=== PATIENT | male | born 1965 | race Caucasian/White ===

== ENCOUNTER 2022-03-02 11:21 | Outpatient (REF) | payer MEDICARE, MEDICAID, SELFPAY | END 2022-03-02 11:22 | disposition home or self-care (01) | LOC: HO.RESP 11:21 | PROVIDERS: PCP Nurse Practitioner Primary Care; Visit Provider Nurse Practitioner Primary Care | DX: Z13.89 Encounter for screening for other disorder (principal) ==

== ENCOUNTER 2024-03-02 09:53 | Outpatient (REF) | payer MEDICARE, MEDICAID, SELFPAY ==
[2024-03-02 11:14] LABS: MANUAL DIFF FLAG NO
[2024-03-02 11:18] LABS: Basophils Absolute Auto 0.1 X10*3/uL (0.0-0.2); Basophils Percent Auto 0.6 % (0-2); Eosinophils Absolute Auto 0.2 X10*3/uL (0.0-0.4); Eosinophils Percent Auto 1.8 % (0-4); Hematocrit 44.9 % (42.0-52.0); Hemoglobin 15.5 g/dl (14.0-18.0); Imm Gran Abs Auto 0.03 X10*3/uL (0.00-0.03); Imm Gran Pct Auto 0.3 % (0.0-0.4); Lymphocytes Absolute Auto 4.4 X10*3/uL (1.2-4.9); Lymphocytes Percent Auto 42.2 % (20-40); Mean Corpuscular HGB Conc 34.5 g/dl (31.0-36.0); Mean Corpuscular Hemoglobin 33.3 pg (27.0-33.0); Mean Corpuscular Volume 96.4 fL (80.0-98.0); Mean Platelet Volume 11.7 fL (9.4-12.4); Monocytes Absolute Auto 1.1 X10*3/uL (0.1-1.2); Monocytes Percent Auto 10.9 % (2-11); Neutrophils Absolute Auto 4.6 x10*3/uL (2.0-8.3); Neutrophils Percent Auto 44.2 % (45-73); Platelet Count 269 X10*3/uL (160-400); Red Blood Count 4.66 X10*6/uL (4.60-5.80); Red Cell Distribution Width 15.3 % (11.0-16.0); White Blood Count 10.4 X10*3/uL (4.8-10.8)
[2024-03-02 11:35] LABS: Alanine Aminotransferase 23 U/L (0-40); Albumin Level 4.1 g/dL (3.5-5.0); Alkaline Phosphatase 97 U/L (39-117); Anion Gap 12 (12-20); Aspartate Amino Transferase 30 U/L (5-37); Bilirubin Total 0.6 mg/dL (0.0-1.0); Blood Urea Nitrogen 10 mg/dL (9-16); Calcium 9.6 mg/dL (8.4-10.2); Carbon Dioxide 26 mmol/L (22-29); Chloride 105 mmol/L (96-108); Estimated Glomerular Filt Rate > 60; Glucose Random 97 mg/dL (60-115); Potassium 3.6 mmol/L (3.3-5.1); Sodium 139 mmol/L (135-145); Total Protein 8.5 g/dL (6.5-8.0)
[2024-03-02 11:57] LABS: HBS Num1 1.23 mIU/mL (0-7.99); HBc Num1 4.36 S/CO (0.00-0.79); HBsAGNum1 0.27 S/CO (0.00-0.99); Hepatitis B Surface Antigen Negative (Negative); ~Hepatitis B Surface Antibody NONREACTIVE (Nonreactive)
[2024-03-02 12:54] LABS: HBc Num2 4.41 S/CO; HBc Num3 4.42 S/CO; Hepatitis B Core Antibody Reactive (Nonreactive)
[2024-03-04 11:14] LABS: Hepatitis B Core Antibody IgM NON-REACTIVE (NON-REACTIVE)
[2024-03-05 08:59] LABS: Absolute CD3 Count 3153 cells/uL (840-3060); Absolute CD4 Count 996 cells/uL (490-1740); Absolute CD8 Count 2134 cells/uL (180-1170); Absolute Lymphocytes 4620 cells/uL (850-3900); CD4 CD8 Ratio 0.47 (0.86-5.00); Percent CD3 Cells 68 % (57-85); Percent CD4 Cells 22 % (30-61); Percent CD8 Cells 46 % (12-42)
[2024-03-06 12:13] LABS: HIV RNA PCR Qn Copies <20 DETECTED copies/mL (NOT DETECTED); HIV RNA PCR Qn Log Copies <1.30 DETECTED (NOT DETECTED)
== END 2024-03-02 09:54 | disposition home or self-care (01) ==
LOC: HO.HHCL 09:53
PROVIDERS: Visit Provider Student in an Organized Health Care Education/Training Program
DX: B20 Human immunodeficiency virus [HIV] disease (principal)
CPT/HCPCS: 36415; 80053; 85025; 86359; 86360; 86704; 86705; 86706; 87340; 87536

== ENCOUNTER 2025-04-25 10:01 | Outpatient (REF) | payer MEDICARE, MEDICAID, SELFPAY ==
[2025-04-25 11:06] LABS: MANUAL DIFF FLAG NO
[2025-04-25 11:10] LABS: Appearance Urine Clear; Glucose Urine UA Negative (Negative); PH 6.5 (5.0-9.0); Specific Gravity - Urine <= 1.005 (1.005-1.025)
[2025-04-25 11:18] LABS: Hematocrit 42.8 % (42.0-52.0); Hemoglobin 14.8 g/dl (14.0-18.0); Imm Gran Abs Auto 0.03 X10*3/uL (0.00-0.03); Imm Gran Pct Auto 0.3 % (0.0-0.4); Lymphocytes Absolute Auto 2.3 X10*3/uL (1.2-4.9); Mean Corpuscular HGB Conc 34.6 g/dl (31.0-36.0); Mean Corpuscular Hemoglobin 32.2 pg (27.0-33.0); Mean Corpuscular Volume 93.2 fL (80.0-98.0); NRBC Abs Auto 0.000 X10*3/uL (0.0-0.012); NRBC Pct Auto 0.0 /100WBC (0.0-0.2); Platelet Count 318 X10*3/uL (160-400); Red Blood Count 4.59 X10*6/uL (4.60-5.80); White Blood Count 8.6 X10*3/uL (4.8-10.8)
[2025-04-25 11:35] LABS: Alanine Aminotransferase 22 U/L (0-40); Albumin Level 4.1 g/dL (3.5-5.0); Alkaline Phosphatase 123 U/L (39-117); Anion Gap 14 (12-20); Aspartate Amino Transferase 31 U/L (5-37); Blood Urea Nitrogen 14 mg/dL (9-16); Calcium 9.0 mg/dL (8.4-10.2); Carbon Dioxide 27 mmol/L (22-29); Chloride 100 mmol/L (96-108); Estimated Glomerular Filt Rate > 60; Potassium 3.5 mmol/L (3.3-5.1); Sodium 137 mmol/L (135-145); Total Protein 8.9 g/dL (6.5-8.0)
[2025-04-25 11:52] LABS: Thyroid Stimulating Hormone 1.24 uIU/mL (0.32-4.0)
== END 2025-04-25 10:02 | disposition home or self-care (01) ==
LOC: HO.HHCL 10:01
PROVIDERS: PCP Nurse Practitioner Primary Care; Visit Provider Registered Nurse Psychiatric/Mental Health, Adult
DX: F14.90 Cocaine use, unspecified, uncomplicated (principal); F11.90 Opioid use, unspecified, uncomplicated
CPT/HCPCS: 36415; 80053; 81003; 84100; 84443; 85025

== ENCOUNTER 2025-06-10 10:50 | Outpatient (REF) | payer MEDICARE, MEDICAID, SELFPAY ==
--- OUTSIDE RECORDS SUMMARY | 2025-06-08 06:25 | XMS_ITS | Encounter Summary ---
Author Organization [employer] Address [address] [place] [address] Care Team Providers Care Cut Roll Machine Offbearer Name Role Phone Physician, Pcp Unknown Primary Care Provider Nkechi vailable Reason for Visit * Reason Comments Shortness of Breath Encounter Details Date Type Department Care Team (Late st Contact Info) Description 06/08/2025 6:25 AM EDT - 06/08/2025 2:52 PM EDT Emergency [facility] Emergency [address] [place] [phone] Radha Ladd MD [address] [place] [address] Alcoholic intoxication without complication (CMS/HCC V24) (Primary Dx) Discharge Disposition: Home or Self Care Social History Tobacco Use Types Packs/Day Years Used Date Smoking Tobacco: Never Assessed Alcohol Use Standard Drinks/Week Comments Yes 24 (1 standard drink = 0.6 oz pu re alcohol) Sex and Gender Information Value Date Recorded Sex Assigned at Not on file Legal Sex Male 3:00 AM EST Gender Identity Not on file Sexual Orientation Not on file documented as of this encounter Last Filed Vital Signs Vital Sign Reading Time Taken Comments Blood Pressure 155/101 06/08/2025 2:24 PM EDT Pulse 86 06/08/2025 2:24 PM EDT Temperature 37.3 C (99.1 F) 06/08/2025 2:24 PM EDT Respiratory Rate 18 06/08/2025 2:24 PM EDT Oxygen Saturation 92% 06/08/2025 2:24 PM EDT Inhaled Oxygen Concentration - - Weight 90.7 kg (200 lb) 06/08/2025 6:13 AM EDT Height 180.3 cm (5' 11 ) 06/08/2025 6:13 AM EDT Body Mass Index 27.89 06/08/2025 6:13 AM EDT documented in this encounter Functional Status * Are you deaf or do you have serious difficulty hearing? Answer Date of Assessment Author No 06/08/2025 6:53 AM EDT Des Forde RN * Are you blind or do you have serious difficulty seeing, even when wearing glasses? Answer Date of Assessment Author No 06/08/2025 6:53 AM EDT Des Forde RN * Do you have serious difficulty walking or climbing stairs? Answer Date of Assessment Author No 06/08/2025 6:53 AM EDT Des Fored RN * Do you have serious difficulty dressing or bathing? Answer Date of Assessment Author No 06/08/2025 6:53 AM EDT Des Forde RN * Because of a physical, mental, or emotional condition, do you have serious difficulty doing errandsalone such as visiting the doctor? Answer Date of Assessment Author No 06/08/2025 6:53 AM EDT Des Forde RN documented as of this encounter Mental Status * Because of a physical, mental, or emotional condition, do you have serious difficulty concentrating, remembering, or making decisions? (5 years old or older) Answer Entry Date Author No 06/08/2025 6:53 AM DEET Des Forde RN documented in this encounter Discharge Instructions * Discharge Instructions* STEFAN Abraham - 06/08/2025 12:22 PM EDT You were treated for alcohol withdrawal and shortness of breath. Your symptoms improved and your hospital stay was uncomplicated. Medications Prescribed Chlordiazepoxide (Librium): Day 1: 50 mg by mouth 3 times daily Days 2-3: 25 mg by mouth 3 times daily Take exactly as prescribed. Do not take more than directed. Do not drink alcohol, drive, or operate heavy machinery while taking this medication. Thiamine (Vitamin B1): 100 mg daily (take as prescribed). Folic Acid: 125 mg daily (take as prescribed). Self-Care Do not drink alcohol. Combining alcohol with Librium is dangerous and can cause severe sedation or breathing problems. Stay hydrated and eat balanced meals. Rest: Avoid strenuous activity until cleared by your doctor. Follow-Up Follow up with your primary care provider within 3-5 days. If you have an addiction medicine provider or detox program, follow their instructions and contact them today or tomorrow. Return to the Emergency Department Immediately If You Develop: Seizures, confusion, hallucinations, or agitation Severe shortness of breath, chest pain, fainting Persistent vomiting or inability to keep medications down Severe weakness, dizziness, or new neurological symptoms Thoughts of harming yourself or others Additional Notes This prescription is only a short taper to help control withdrawal symptoms. It is not a long-term treatment. Continuing support, follow-up, and abstinence from alcohol are critical to your recovery. Seek immediate medical attention or call 911 should you develop chest pain, severe or worsening symptoms, numbness, tingling, severe headache, sudden change in vision, any other alarming symptoms discussed. Blood pressure discharge During your evaluation you were noted to have an elevated blood pressure on repeat measurements without a past medical history of diagnosis of hypertension and not taking medications daily. Elevated blood pressure may be due to current illness or discomfort and pain. I recommend that you have your blood pressure reevaluated after you are no longer ill. - You are asymptomatic at this time and are clinically appropriate for discharge to home and followup with PCP jim. Discussed potential need for meds/change in meds to control blood pressure if remains elevated. - There are risks of not following up with PCP for blood pressure control such as an increased riskof stroke, kidney failure, other organ failure or damage, heart attack, or even sudden loss of life - call 911 or go to ER should you develop chest pain, sudden change in vision, palpitations, severeheadache, sudden leg swelling, or other alarming symptoms documented in this encounter Medications at Time of Discharge chlordiazePOXIDE (LIBRIUM) 25 mg capsule Take 2 capsules (50 mg total) by mouth 3 (three) times a day if needed for withdrawal for 1 day, THEN 1 capsule (25 mg total) 3 (three) times a day if needed for withdrawal for up to 2 days. Max Daily Amount: 150 mg. 8 each 06/08/2025 5 iron fum,qc-[id number]-Gtx mp,C no.9 (Iron Folate Plus) 125 mg iron- 1 mg capsule Take 1 capsule by mouth 1 (one) time each day. 30 capsule 06/08/2025 thiamine 100 mg tablet Take 1 tablet (100 mg total) by mouth 1 (one) time each day. 30 tablet 06/08/2025 documented as of this encounter Ordered Prescriptions Prescription Sig Dispense Quantity Refills Last Filled Start Date End Date iron fum,[id number] ,C no.9 (Iron Folate Plus) 125 mg iron- 1 mg capsule Take 1 capsule by mouth 1 (one) time each day. 30 capsule 06/08/2025 thiamine 100 mg tablet Take 1 tablet (100 mg total) by mouth 1 (one) time each day. 30 tablet 06/08/2025 chlordiazePOXIDE (LIBRIUM) 25 mg capsule Take 2 capsules (50 mg total) by mouth 3 (three) times a day if needed for withdrawal for 1 day, THEN 1 capsule (25 mg total) 3 (three) times a day if needed for withdrawal for up to 2 days. Max Daily Amount: 150 mg. 8 each 06/08/2025 5 documented in this encounter Discharge Disposition Disposition Code Departure Means Destination Comment s Home or Self Care documented in this encounter Progress Notes * Amairani Nguyen, JOHN - 06/08/2025 6:15 AM EDT PT ARRIVES STEADY GAIT, TREMULOUS, PT STATES HE IS A DAILY DRINKER, LAST DRINK 10 PM LAST NIGHT, STATES HE DOES NOT HAVE SEIZURES IF HE STOPS DRINKING, STATES THE TREMORS STARTED A MONTH AGO, PT CHIEF COMPLAINTS IS SOB, THAT STARTED IN MIDDLE OF THE NIGHT, PT STATES HE HAS HX COPD, CHF, PT DOES NOTUSE HOME O2, PT DENIES COUGH AND COLD SYMPTOMS, DENIES N/V/D, DENIES OR BM SYMPTOMS , USES TOBACCO , NO WEED, SPEAKS IN FULL SENTENCES, DENIES CP * STEFAN Abraham - 06/08/2025 6:07 AM EDT HPI Chief Complaint Patient presents with Shortness of Breath Patient is a pleasant 59-year-old male with past medical history of COPD living on room air, HIV, and EtOH abuse presenting today with sudden onset shortness of breath around 4:00 this morning. Patient reports he had a 24 pack of bottled beer Last evening. Patient denies fever, chills, nausea, vomiting, diarrhea, chest pain, palpitations, sudden swelling lower extremities, severe headache, No data recorded Patient History No past medical history on file. No past surgical history on file. No family history on file. Social History Tobacco Use Smoking status: Not on file Smokeless tobacco: Not on file Substance Use Topics Alcohol use: Not on file Drug use: Not on file Review of Systems Review of Systems Physical Exam ED Triage Vitals [06/08/25 0613] Temp Heart Rate Resp BP 37.1 ??C (98.7 ??F) 92 20 (!) 171/101 SpO2 Temp Source Heart Rate Source Patient Position 92 % Temporal -- Sitting BP Location FiO2 (%) -- -- Physical Exam Vitals and nursing note reviewed. Constitutional: General: He is not in acute distress. Appearance: He is not ill-appearing, toxic-appearing or diaphoretic. HENT: Head: Normocephalic and atraumatic. Right Ear: External ear normal. Left Ear: External ear normal. Nose: Nose normal. No rhinorrhea. Eyes: Extraocular Movements: Extraocular movements intact. Conjunctiva/sclera: Conjunctivae normal. Pupils: Pupils are equal, round, and reactive to light. Cardiovascular: Rate and Rhythm: Normal rate. Rhythm irregularly irregular. Heart sounds: Normal heart sounds. Comments: Well-perfused Pulmonary: Effort: Pulmonary effort is normal. No respiratory distress. Breath sounds: Transmitted upper airway sounds present. No stridor or decreased air movement. Comments: Patient making vocal cord noises with deep breathing making it difficult to determine if there is mild wheeze or not Abdominal: General: There is no distension. Musculoskeletal: General: No deformity. Normal range of motion. Cervical back: Normal range of motion and neck supple. No rigidity. Right lower leg: No edema. Left lower leg: No edema. Skin: General: Skin is warm. Capillary Refill: Capillary refill takes 2 to 3 seconds. Coloration: Skin is not jaundiced or pale. Neurological: General: No focal deficit present. Mental Status: He is alert and oriented to person, place, and time. Mental status is at baseline. GCS: GCS eye subscore is 4. GCS verbal subscore is 5. GCS motor subscore is 6. Motor: Tremor present. Coordination: Coordination normal. Gait: Gait is intact. Psychiatric: Attention and Perception: Attention normal. Mood and Affect: Mood and affect normal. Speech: Speech normal. Behavior: Behavior normal. Thought Content: Thought content normal. Judgment: Judgment normal. ED Course & MDM ED Course as of 06/08/25 1426 Sat Jun 08, 2025 0631 CIWA AR score 8.. Will have Diazepam as needed agitation, anxiety or tremors [LB] 0654 ECG 12 lead EKG independently interpreted by myself: No overt evidence of STEMI. No evidence of Brugada's sign,delta wave, epsilon wave, significantly prolonged QTc, or malignant arrhythmia Irregularly irregular rhythm noted [LB] 0718 B-type natriuretic peptide BMP within normal range. Patient is unlikely experiencing CHF [LB] 0719 Magnesium Within normal range [LB] 0719 Troponin I high sensitivity Within normal range [LB] 0720 CBC and differential(!) CBC largely unremarkable. [LB] 0720 Basic metabolic panel(!) BMP is reassuring with normal sodium and electrolytes. Glucose mildly elevated at 126 however does not require management at this time [LB] 0720 ECG 12 lead Chest x-ray independently interpreted by myself: No acute cardiopulmonary disease noted. Increased peribronchial markings consistent with reactive airway/COPD. [LB] 1415 Patient requesting for discharge at this time because he feels a lot better. Patient appears clinically appropriate and stable with downtrending blood pressures. Patient is currently asymptomatic other than his baseline tremors that has had for the last month or 2. [LB] ED Course User Index [LB] Jose Last, PA Clinical Impressions as of 06/08/25 1426 Alcoholic intoxication without complication (CMS/[facility] V24) Medical Decision Making Patient with a history of COPD and HIV who presented this morning with shortness of breath that started suddenly overnight and headache and sweats. Patient reporting history of alcohol withdrawals without seizures or complications in the past. Patient states he tried using his albuterol inhaler with little effect and decided to come in. Patient's EtOH was 25 this morning. Patient was also positive for methadone in urine. However, remaining talk screen negative and no electrolyte abnormalities. CBC and BMP were largely unremarkable. Patient received single dose 10 mg Valium for reported headache, nausea and agitation earlier this morning with good effect and patient is requesting discharge at this time. Patient appears clinically stable and appropriate for discharge and blood pressures trending downward as they were elevated at time of initial evaluation. During your evaluation you were noted to have an elevated blood pressure on repeat measurements without a past medical history of diagnosis of hypertension and not taking medications daily. Elevated blood pressure may be due to current illness or discomfort and pain. I recommend that you have your blood pressure reevaluated after you are no longer ill. I will be discharging patient with Librium to help manage withdrawal symptoms as he reports he would like to go to detox today or tomorrow. Strict RTC precautions discussed. I will also be sending thiamine and folate supplements as part of his regimen. MassPat reviewed. No concern for abuse of librium Procedures STEFAN Abraham 06/08/25 0615 STEFAN Abraham 06/08/25 0626 STEFAN Abraham 06/08/25 0745 STEFAN Abraham 06/08/25 1425 STEFAN Abraham 06/08/25 1430 Cosigned by Nabeel Steiner MD at 06/09/2025 10:16 PM EDT documented in this encounter Plan of Treatment Not on file documented as of this encounter Procedures Procedure Name Priority Date/Time Associated Diagnosis Comments ECG ANNOTATED 06/10/2025 DRUG ABUSE SCREEN 8A PANEL, URINE STAT 06/08/2025 7:54 AM EDT BUPRENORPHINE SCREEN, URINE STAT 06/08/2025 7:54 AM EDT METHADONE SCREEN, URINE STAT 06/08/2025 7:54 AM EDT PHENCYCLIDINE, URINE STAT 06/08/2025 7:54 AM EDT TROPONIN I HIGH SENSITIVITY Timed 06/08/2025 7:51 AM EDT XR CHEST 2 VIEWS STAT 06/08/2025 6:57 AM EDT TROPONIN I HIGH SENSITIVITY Timed 06/08/2025 6:22 AM EDT CBC WITH AUTO DIFFERENTIAL STAT 06/08/2025 6:22 AM EDT CBC AND DIFFERENTIAL STAT 06/08/2025 6:22 AM EDT B-TYPE NATRIURETIC PEPTIDE STAT 06/08/2025 6:22 AM EDT MAGNESIUM STAT 06/08/2025 6:22 AM EDT LIPASE STAT 06/08/2025 6:22 AM EDT ETHANOL STAT 06/08/2025 6:22 AM EDT BASIC METABOLIC PANEL STAT 06/08/2025 6:22 AM EDT ECG 12-LEAD STAT 06/08/2025 6:14 AM EDT documented in this encounter Results * ECG-Annotated (06/10/2025) us Provider Onbase MD ECG ORDERABLES Final Result * (ABNORMAL) Methadone, urine (06/08/2025 7:54 AM EDT) Pathologist [facility] Methadone Screen, Urine Positive (A) Negative LAB CHEMISTRY METHOD 06/08/2025 8:24 AM EDT [facility] Comment: Assay cutoff 300 ng/mL Semi-quantitative assay for screening purposes only. Unconfirmed screening result should not be used for non-medical purposes. *ALTERNATE METHOD CONFIRMATION DONE UPON REQUEST ONLY* Urine Urine specimen obtained by clean catch procedure / Unknown Non-blood Collection / Unknown 06/08/2025 7:54 AM EDT 06/08/2025 8:04 AM EDT Tan Weems MD LAB URINE ORDERABLES Final Result Performing Organization Address [facility] de Phone Number [facility] [address] [place] [address], [place] [phone] * Phencyclidine, urine (06/08/2025 7:54 AM EDT) [facility] PCP Scrn, Ur Negative Negative LAB CHEMISTRY METHOD 06/08/2025 8:24 AM EDT [facility] Comment: Assay cutoff 25 ng/mL Semi-quantitative assay for screening purposes only. Unconfirmed screening result should not be used for non-medical purposes. *ALTERNATE METHOD CONFIRMATION DONE UPON REQUEST ONLY* Urine Urine specimen obtained by clean catch procedure / Unknown Non-blood Collection / Unknown 06/08/2025 7:54 AM EDT 06/08/2025 8:04 AM EDT Tan Weems MD LAB URINE ORDERABLES Final Result Performing Organization Address City/[facility]/ZIP Co de Phone Number [facility] [address] [place] [address], [place] [phone] * Buprenorphine screen, urine (06/08/2025 7:54 AM EDT) [facility] Buprenorphine Screen Urine Negative Negative LAB CHEMISTRY METHOD 06/08/2025 8:24 AM EDT [facility] Urine Urine specimen obtained by clean catch procedure / Unknown Non-blood Collection / Unknown 06/08/2025 7:54 AM EDT 06/08/2025 8:04 AM EDT Narrative [facility] - 06/08/2025 8:24 AM EDT Assay cutoff 5 ng/mL Semi-quantitative assay for screening purposes only. Unconfirmed screening result should not be used for non-medical purposes. *ALTERNATE METHOD CONFIRMATION DONE UPON REQUEST ONLY* us Tan Weems MD LAB URINE ORDERABLES Final Result [facility] [address] [place] [address], [place] [phone] * Drug abuse screen 8a panel, urine (06/08/2025 7:54 AM EDT) Amphetamine Screen, Ur Negative Negative LAB CHEMISTRY METHOD 06/08/2025 8:24 AM EDT [facility] Comment:Certain OTC medicati ons containing ephedrine, phenylephrine, pseudoephedrine and phenylpropanolamine can cause false positive results. Barbiturate Screen, Ur Negative Negative LAB CHEMISTRY METHOD 06/08/2025 8:24 AM EDT [facility] Benzodiazepine Screen, Ur Negative Negative LAB CHEMISTRY METHOD 06/08/2025 8:24 AM [facility] Cocaine Screen, Ur Negative Negative LAB CHEMISTRY METHOD 06/08/2025 8:24 AM EDT [facility] Opiate Screen, Ur Negative Negative LAB CHEMISTRY METHOD 06/08/2025 8:24 AM [facility] Cannabinoid (THC) Screen, Ur Negative Negative LAB CHEMISTRY METHOD 06/08/2025 8:24 AM [facility] Comment:Specimens from patie nts taking pantoprazole sodium (Protonix) have been shown to produce false positive results. Oxycodone Screen, Ur Negative Negative LAB CHEMISTRY METHOD 06/08/2025 8:24 AM EDT [facility] Fentanyl, Ur Negative Negative LAB CHEMISTRY METHOD 06/08/2025 8:24 AM EDT [facility] Urine Urine specimen obtained by clean catch procedure / Unknown Non-blood Collection / Unknown 06/08/2025 7:54 AM EDT 06/08/2025 8:04 AM EDT [facility] - 06/08/2025 8:24 AM EDT Assay cutoffs: Amphetamines 1000 ng/mL Barbiturates 200 ng/mL Benzodiazepines 200 ng/mL Cocaine 300 ng/mL Fentanyl 1 ng/mL Opiates 300 ng/mL Oxycodone 100 ng/mL THC 50 ng/mL Semi-quantitative assay for screening purposes only. Unconfirmed screening result should not be used for non-medical purposes. *ALTERNATE METHOD CONFIRMATION DONE UPON REQUEST ONLY* Tan Weems MD LAB URINE ORDERABLES Final Result Performing Organization Address [facility] Co de Phone Number [facility] [address] [place] [address], * Troponin I high sensitivity (06/08/2025 7:51 AM EDT) [facility] High Sensitivity Troponin I 13 <=79 ng/L LAB CHEMISTRY METHOD 06/08/2025 8:30 AM EDT [facility] Blood Venous blood specimen / Unknown Venipuncture / Unknown 06/08/2025 7:51 AM EDT 06/08/2025 8:03 AM EDT [facility] - 06/08/2025 8:30 AM EDT High levels of biotin in samples may falsely decrease hsTroponin values. Use caution when interpreting hsTroponin results in patients taking biotin who exhibit renal impairment (eGFR <60) or in patients taking more than 20 mg/day of biotin. Tan Weems MD LAB BLOOD ORDERABLES Final Result Performing Organization Address [facility]/ZIP Co de Phone Number [facility] [address] [place] [address], * XR Chest 2 Views (06/08/2025 6:57 AM EDT) Anatomical Region Laterality Modality Body Radiographic Zara ging 06/08/2025 8:19 AM EDT Impressions 06/08/2025 8:20 AM EDT FINDINGS/IMPRESSION: Lungs are clear. No pleural effusion or pneumothorax. Cardiac silhouette and bones are within normal limits. -------- FINAL REPORT -------- Dictated By: JASON AYON Dictated Date: 06/08/2025 08:19 ET Assigned Physician: JASON AYON Reviewed and Electronically Signed By: JASON AYON Signed Date: 06/08/2025 08:20 ET Workstation ID: [id number] Transcribed By: Self Edit Transcribed Date: 06/08/2025 08:19 ET Narrative 06/08/2025 8:20 AM EDT XR CHEST 2 VIEWS INDICATION: Chest pain TECHNIQUE: XR CHEST 2 VIEWS COMPARISON: 12/28/2016 Procedure Note Jason Ayon MD - 06/08/2025 XR CHEST 2 VIEWS INDICATION: Chest pain TECHNIQUE: XR CHEST 2 VIEWS COMPARISON: 12/28/2016 IMPRESSION: FINDINGS/IMPRESSION: Lungs are clear. No pleural effusion orpneumothorax. Cardiac silhouette and bones are within normal limits. -------- FINAL REPORT -------- Dictated By: JASON AYON Dictated Date: 06/08/2025 08:19 ET Assigned Physician: JASON AYON Reviewed and Electronically Signed By: JASON AYON Signed Date: 06/08/2025 08:20 ET Workstation ID: [id number] Transcribed By: Self Edit Transcribed Date: 06/08/2025 08:19 ET Tan Weems MD IMG XR PROCEDURES Final Res ult * Troponin I high sensitivity (06/08/2025 6:22 AM EDT) High Sensitivity Troponin I 14 <=79 ng/L LAB CHEMISTRY METHOD 06/08/2025 6:59 AM EDT [facility] Blood Venous blood specimen / Unknown Venipuncture / Unknown 06/08/2025 6:22 AM EDT 06/08/2025 6:30 AM EDT Narrative [facility] - 06/08/2025 6:59 AM EDT High levels of biotin in samples may falsely decrease hsTroponin values. Use caution when interpreting hsTroponin results in patients taking biotin who exhibit renal impairment (eGFR <60) or in patients taking more than 20 mg/day of biotin. Tan Weems MD LAB BLOOD ORDERABLES Final Result Performing Organization Address City/[facility]/ZIP Co de Phone Number [facility] [address] [place] [address], [place] [phone] * Lipase (06/08/2025 6:22 AM EDT) Lipase 66 13 - 75 unit/L LAB CHEMISTRY METHOD 06/08/2025 7:06 AM EDT [facility] Blood Venous blood specimen / Unknown Venipuncture / Unknown 06/08/2025 6:22 AM EDT 06/08/2025 6:30 AM EDT Tan Weems MD LAB BLOOD ORDERABLES Final Result [facility] [address] [place] [address], [place] [phone] * Magnesium (06/08/2025 6:22 AM EDT) Magnesium 2.1 1.9 - 2.6 mg/dL LAB CHEMISTRY METHOD 06/08/2025 7:06 AM EDT [facility] Blood Venous blood specimen / Unknown Venipuncture / Unknown 06/08/2025 6:22 AM EDT 06/08/2025 6:30 AM EDT Tan Weems MD LAB BLOOD ORDERABLES Final Result Performing Organization Address City/[facility]/ZIP Co de Phone Number [facility] [address] [place] [address], [place] [phone] * (ABNORMAL) Ethanol (06/08/2025 6:22 AM EDT) Pathologist [facility] Ethanol Level 25(H) 0 - 10 mg/dL LAB CHEMISTRY METHOD 06/08/2025 7:06 AM EDT [facility] Blood Venous blood specimen / Unknown Venipuncture / Unknown 06/08/2025 6:22 AM EDT 06/08/2025 6:30 AM EDT Tan Weems MD LAB BLOOD ORDERABLES Final Result Performing Organization Address [facility] Co de Phone Number [facility] [address] [place] [address], [place] [phone] * (ABNORMAL) CBC auto differential (06/08/2025 6:22 AM EDT) [facility] WBC 10.3 4.8 - 10.8 K/mcL LAB HEMETOLOGY METHOD 06/08/2025 6:40 AM EDT [facility] RBC 4.90 4.50 - 5.50 M/mcL LAB HEMETOLOGY METHOD 06/08/2025 6:40 AM EDT [facility] Hemoglobin 14.6 13.5 - 17.5 g/dL LAB HEMETOLOGY METHOD 06/08/2025 6:40 AM EDT [facility] Hematocrit 44.8 42.0 - 54.0 % LAB HEMETOLOGY METHOD 06/08/2025 6:40 AM EDT [facility] MCV 92.2 79.0 - 98.0 FL LAB HEMETOLOGY METHOD 06/08/2025 6:40 AM EDT [facility] MCH 30.0 27.0 - 32.0 pcg LAB HEM[facility] MCHC 32.6 32.0 - 37.0 g/dL LAB HEMETOLOGY METHOD 06/08/2025 6:40 AM [facility] RDW 15.0 11.0 - 15.0 % LAB HEMETOLOGY METHOD 06/08/2025 6:40 AM [facility] Platelets 343 130 - 400 K/mcL LAB HEMETOLOGY METHOD 06/08/2025 6:40 AM [facility] MPV 10.2 7.0 - 11.0 [place] LAB HEMETOLOGY METHOD 06/08/2025 6:40 AM [facility] NRBC 0.0 <1.0 % LAB HEMETOLOGY METHOD 06/08/2025 6:40 AM [facility] NRBC Absolute 0.00 <0.10 K/mcL LAB HEMETOLOGY METHOD 06/08/2025 6:40 AM [facility] Neutrophils Relative 49.0 % LAB HEMETOLOGY METHOD 06/08/2025 6:40 AM [facility] Lymphocytes Relative 37.9 % LAB HEMETOLOGY METHOD 06/08/2025 6:40 AM [facility] Monocytes Relative 11.4 % LAB HEMETOLOGY METHOD 06/08/2025 6:40 AM [facility] Eosinophils Relative 0.9 % LAB HEMETOLOGY METHOD 06/08/2025 6:40 AM [facility] Basophils Relative 0.5 % LAB HEMETOLOGY METHOD 06/08/2025 6:40 AM [facility] Immature Granulocytes Relative 0.3 % LAB HEMETOLOGY METHOD 06/08/2025 6:40 AM [facility] Neutrophils Absolute 5.04 1.50 - 7.00 K/mcL LAB HEMETOLOGY METHOD 06/08/2025 6:40 AM EDT [facility] Lymphocytes Absolute 3.90 1.00 - 5.00 K/mcL LAB HEMETOLOGY METHOD 06/08/2025 6:40 AM EDT [facility] Monocytes Absolute 1.17(H) 0.20 - 1.00 K/mcL LAB HEMETOLOGY METHOD 06/08/2025 6:40 AM EDT [facility] Eosinophils Absolute 0.09 0.00 - 0.50 K/[facility] HEMETOLOGY METHOD 06/08/2025 6:40 AM EDT [facility] Basophils Absolute 0.05 0.00 - 0.20 K/mcL LAB HEMETOLOGY METHOD 06/08/2025 6:40 AM EDT [facility] Immature Granulocytes Absolute 0.03 0.00 - 0.03 K/mcL LAB HEMETOLOGY METHOD 06/08/2025 6:40 AM EDT [facility] Blood Venous blood specimen / Unknown Venipuncture / Unknown 06/08/2025 6:22 AM EDT 06/08/2025 6:30 AM EDT Tan Weems MD LAB BLOOD ORDERABLES Final Result [facility] [address] [place] [address], * B-type natriuretic peptide (06/08/2025 6:22 AM EDT) BNP 23 <=100 pcg/mL LAB CHEMISTRY METHOD 06/08/2025 7:07 AM EDT [facility] Blood Venous blood specimen / Unknown Venipuncture / Unknown 06/08/2025 6:22 AM EDT 06/08/2025 6:30 AM EDT us Tan Weems MD LAB BLOOD ORDERABLES Final Result [facility] [address] [place] [address], * (ABNORMAL) Basic metabolic panel (06/08/2025 6:22 AM EDT) Sodium 138 133 - 145 mmol/L LAB CHEMISTRY METHOD 06/08/2025 7:06 AM [facility] Potassium 3.5 3.5 - 5.5 mmol/L LAB CHEMISTRY METHOD 06/08/2025 7:06 AM [facility] Chloride 100 96 - 110 mmol/L LAB CHEMISTRY METHOD 06/08/2025 7:06 AM [facility] CO2 28 21 - 32 mmol/L LAB CHEMISTRY METHOD 06/08/2025 7:06 AM [facility] Anion Gap 10 3 - 11 LAB CHEMISTRY METHOD 06/08/2025 7:06 AM [facility] Glucose 125(H) 70 - 100 mg/dL LAB CHEMISTRY METHOD 06/08/2025 7:06 AM [facility] BUN 13 5 - 25 mg/dL LAB CHEMISTRY METHOD 06/08/2025 7:06 AM [facility] Creatinine 0.78 0.70 - 1.30 mg/dL LAB CHEMISTRY METHOD 06/08/2025 7:06 AM [facility] eGFR 103 >=60 mL/min/1. 73m2 LAB CHEMISTRY METHOD 06/08/2025 7:06 AM [facility] Comment:Calculation based on the Chronic Kidney Disease Epidemiology Collaboration (CKD-EPI) equation refit without adjustment for race. BUN/Creatinine Ratio 16.7 LAB CHEMISTRY METHOD 06/08/2025 7:06 AM [facility] Calcium 9.3 8.5 - 10.5 mg/dL LAB CHEMISTRY METHOD 06/08/2025 7:06 AM EDT [facility] Blood Venous blood specimen / Unknown Venipuncture / Unknown 06/08/2025 6:22 AM EDT 06/08/2025 6:30 AM EDT Tan Weems MD LAB BLOOD ORDERABLES Final Result Performing Organization Address City/[facility]/ZIP Co de Phone Number [facility] [address] [place] [address], [place] [phone] * ECG 12 lead (06/08/2025 6:14 AM EDT) Ventricular Rate ECG 87 BPM G[facility] Atrial Rate 87 BPM G[facility] P-R Interval 172 ms GEMUSE QRS Duration 94 ms GEMUSE Q-T Interval 388 ms GEMUSE QTc 466 ms GEMUSE P Wave [place] 47 degrees GEMUSE R [place] 8 degrees GEMUSE T [place] 12 degrees GEMUSE ECG Interpretation Sinus rhythm with Premature atrial complexes When compared with ECG of 15-AUG-2018 08:31, Premature atrial complexes are now Present Vent. rate has increased BY 29 BPM Confirmed by KIAN DOBBS ([id number]) on 06/08/2025 11:41:02 PM GEMUSE 06/08/2025 6:14 AM EDT 06/08/2025 11:41 PM EDT Tan Weems MD ECG ORDERABLES Final Resul t Performing Organization Address City/[facility]/ZIP Co de Phone Number GEMUSE documented in this encounter Visit Diagnoses Diagnosis Alcoholic intoxication without complication (CMS/HCC V24)- Primary documented in this encounter Administered Medications Inactive Administered Medications - up to 3 most recent administrations Medication Order MAR Action Action Date Dose Rate Site diazePAM (VALIUM) injection 10 mg 10 mg, intravenous, Every 4 hours PRN, anxiety, other, increasing CIWA, Starting on 06/08/25 at 0902, For 1 day, Indications: increasing agitation, sweats, tremorsIndications:increasi ng agitation, sweats, tremors Given 06/08/2025 9:33 AM EDT 10 mg lactated Ringer's bolus 1,000 mL 1,000 mL, intravenous, at 1,000 mL/hr, Administer over 1 Hours, Once, On 06/08/25 at 0640, For 1 dose New Bag 06/08/2025 6:58 AM EDT 1,000 mL 100 0 mL/hr documented in this encounter Active and Recently Administered Medications Times are shown in EDT. Scheduled Medication Order 06/06/2025 06/07/2025 06/08/2025 lactated Ringer's bolus 1,000 mL (COMPLETED) 1,000 mL, intravenous, at 1,000 mL/hr, Administer over 1 Hours, Once, On 06/08/25 at 0640, For 1 dose 0658 (New Bag - Prov ider: Marleni Forde RN)[id number] (Stopped - Provider: Radha Moore RN) PRN Medication Order 06/06/2025 06/07/2025 06/08/2025 diazePAM (VALIUM) injection 10 mg 10 mg, intravenous, Every 4 hours PRN, anxiety, other, increasing CIWA, Starting on 06/08/25 at 0902, For 1 day, Indications: increasing agitation, sweats, tremors 0933 (Given - Provid er: Radha Moore RN) documented in this encounter Orders Medications Ordered That [place] ht Not Have Been Administered Count Last Ordered Date First Ordered Date lactated Ringer's bolus 1,000 mL 06/08/20 IV Count Last Ordered Date First Orde red Date INSERT PERIPHERAL IV 1 06/08/2025 documented in this encounter Care Teams Cut Roll Machine Offbearer Relationship Specialty Start Date End Date Physician, Pcp Unknown PCP - General 06/08/25 documented as of this encounter
[2025-06-10 13:40] LABS: MANUAL DIFF FLAG NO
[2025-06-10 13:43] LABS: Hematocrit 46.3 % (42.0-52.0); Hemoglobin 15.6 g/dl (14.0-18.0); Imm Gran Abs Auto 0.03 X10*3/uL (0.00-0.03); Imm Gran Pct Auto 0.4 % (0.0-0.4); Lymphocytes Absolute Auto 2.4 X10*3/uL (1.2-4.9); Mean Corpuscular HGB Conc 33.7 g/dl (31.0-36.0); Mean Corpuscular Hemoglobin 30.8 pg (27.0-33.0); Mean Corpuscular Volume 91.3 fL (80.0-98.0); NRBC Abs Auto 0.000 X10*3/uL (0.0-0.012); NRBC Pct Auto 0.0 /100WBC (0.0-0.2); Platelet Count 328 X10*3/uL (160-400); Red Blood Count 5.07 X10*6/uL (4.60-5.80); White Blood Count 8.0 X10*3/uL (4.8-10.8)
[2025-06-10 13:57] LABS: Alanine Aminotransferase 47 U/L (0-40); Albumin Level 4.3 g/dL (3.5-5.0); Alkaline Phosphatase 109 U/L (39-117); Anion Gap 14 (12-20); Aspartate Amino Transferase 55 U/L (5-37); Blood Urea Nitrogen 19 mg/dL (9-16); Calcium 9.6 mg/dL (8.4-10.2); Carbon Dioxide 26 mmol/L (22-29); Chloride 102 mmol/L (96-108); Cholesterol 236 mg/dL (<200); Estimated Glomerular Filt Rate > 60; HDL Cholesterol 52 mg/dL (>40); Hemoglobin A1C 165.9369 umol/L; Potassium 3.5 mmol/L (3.3-5.1); Sodium 138 mmol/L (135-145); Total Hemoglobin (HGBA1C) 4095.1199 umol/L; Total Protein 9.0 g/dL (6.5-8.0); Triglycerides 89 mg/dL (<150)
--- OUTSIDE RECORDS SUMMARY | 2025-06-10 14:22 | XMS_ITS | Clinical Summary ---
Author Organization [facility] Address [address] [place] [address] Phone Care Team Providers Care Career Portals Teacher Name Role Phone Physician, Pcp Unknown Primary Care Provider Nkechi vailable Allergies No known active allergies Medications chlordiazePOXID E (LIBRIUM) 25 mg capsule Take 2 capsules (50 mg total) by mouth 3 (three) times a day if needed for withdrawal for 1 day, THEN 1 capsule (25 mg total) 3 (three) times a day if needed for withdrawal for up to 2 days. Max Daily Amount: 150 mg. 8 each 5 06/11/20 25 Active thiamine 100 mg tablet Take 1 tablet (100 mg total) by mouth 1 (one) time each day. 30 tablet 5 07/08/20 25 Active iron fum,ps-folic-Bc omp,C no.9 (Iron Folate Plus) 125 mg iron- 1 mg capsule Take 1 capsule by mouth 1 (one) time each day. 30 capsule 5 07/08/20 25 Active Active Problems No known active problems Encounters Date Type Department Care Team Description 06/08/2025 6:25 AM EDT - 06/08/2025 2:52 PM EDT Emergency [facility] Emergency [address] [place] [address] Radha Ladd MD Alcoholic intoxication without complication ([facility] V24) (Primary Dx) Discharge Disposition: Home or Self Care from Last 3 Months Surgical History Surgery Date Site/Laterality Comments SPLENECTOMY, TOTAL Medical History Medical History Date Comments COPD (chronic obstructive pulmonary disease) (CM S/HCC V24, CMS/HCC V28) HIV (human immunodeficiency virus infection) (CM S/HCC V24, CMS/HCC V28) Social History Tobacco Use Types Packs/Day Years Used Date Smoking Tobacco: Never Assessed Alcohol Use Standard Drinks/Week Comments Yes 24 (1 standard drink = 0.6 oz pu re alcohol) Sex and Gender Information Value Date Recorded Sex Assigned at Not on file Legal Sex Male 3:00 AM EST Gender Identity Not on file Sexual Orientation Not on file Obstetrics History Last Filed Vital Signs Vital Sign Reading [...] Mass Index 27.89 06/08/2025 6:13 AM EDT Plan of Treatment Health Maintenance Due Date Last Done Comments HIB Vaccines (1 of 1 - Risk 1-dose series) 10/13/1967 Meningococcal B Vaccine (1 of 5 - Increased Risk) 1976 Zoster Vaccines (1 of 2) 2016 Pneumococcal Vaccine: 50+ Years (4 of 4 - PCV20 or PCV21) 05/11/2023 05/11/2018, 03/24/2018, 04/10/2015, Additional history exists Depression Screening 09/26/2024 COVID-19 Vaccine (4 - 2024- season) 2025 09/23/2021, 12/31/2020, 12/03/2020 Influenza Vaccine (#1) 2025 , 06/14/2019, 09/09/2018, Additional history exists Cholesterol Screening (Lipid Panel) 06/08/2025 Colorectal Cancer Screening: Colonoscopy 06/08/2025 HIV Screening 06/08/2025 Hepatitis C Screening 06/08/2025 Medicare Annual Wellness Visit 06/08/2025 Social Influencers of Health Screening 06/08/2025 DTaP,Tdap,and Td Vaccines (3 - Td or Tdap) 05/06/2026 05/06/2016, 10/18/2012 Meningococcal ACWY Vaccine (4 - Risk 2-dose series) 11/07/2028 11/07/2023, 09/14/2018, 05/11/2018 Hepatitis B Vaccines Completed 10/18/2012, 02/15/2011, 12/16/2010, Additional history exists Hepatitis A Vaccines Completed 08/08/2018, 02/05/2015, 12/05/2003 HPV Vaccines Aged Out No longer eligi ble based on patient's age to complete this topic IPV Vaccines Aged Out No longer eligi ble based on patient's age to complete this topic MMR Vaccines Aged Out No longer eligi ble based on patient's age to complete this topic RSV Immunization Patients Under 20 months Aged Out No longer eligible based on patient's age to complete this topic Varicella Vaccines Aged Out No longer eligible based on patient's age to complete this topic Procedures Procedure Name Priority Date/Time Associated Diagnosis Comments ECG ANNOTATED 06/10/2025 METHADONE SCREEN, URINE STAT 06/08/2025 7:54 AM EDT PHENCYCLIDINE, URINE STAT 06/08/2025 7:54 AM EDT BUPRENORPHINE SCREEN, URINE STAT 06/08/2025 7:54 AM EDT DRUG ABUSE SCREEN 8A PANEL, URINE STAT 06/08/2025 7:54 AM EDT TROPONIN I HIGH SENSITIVITY Timed 06/08/2025 7:51 AM EDT XR CHEST 2 VIEWS STAT 06/08/2025 6:57 AM EDT TROPONIN I HIGH SENSITIVITY Timed 06/08/2025 6:22 AM EDT LIPASE STAT 06/08/2025 6:22 AM EDT MAGNESIUM STAT 06/08/2025 6:22 AM EDT ETHANOL STAT 06/08/2025 6:22 AM EDT CBC WITH AUTO DIFFERENTIAL STAT 06/08/2025 6:22 AM EDT B-TYPE NATRIURETIC PEPTIDE STAT 06/08/2025 6:22 AM EDT BASIC METABOLIC PANEL STAT 06/08/2025 6:22 AM EDT CBC AND DIFFERENTIAL STAT 06/08/2025 6:22 AM EDT ECG 12-LEAD STAT 06/08/2025 6:14 AM EDT from Last 3 Months Results * ECG-Annotated (06/10/2025) us Provider Onbase MD ECG ORDERABLES Final Result * Drug abuse screen 8a panel, urine (06/08/2025 7:54 AM EDT) Amphetamine Screen, Ur Negative Negative LAB CHEMISTRY METHOD 06/08/2025 8:24 AM EDT [facility] Comment:Certain OTC medicati ons containing ephedrine, phenylephrine, pseudoephedrine and phenylpropanolamine can cause false positive results. Barbiturate Screen, Ur Negative Negative LAB CHEMISTRY METHOD 06/08/2025 8:24 AM [facility] Benzodiazepine Screen, Ur Negative Negative LAB CHEMISTRY METHOD 06/08/2025 8:24 AM EDT [facility] Cocaine Screen, Ur Negative Negative [facility] Opiate Screen, Ur Negative Negative LAB CHEMISTRY METHOD 06/08/2025 8:24 AM [facility] Cannabinoid (THC) Screen, Ur Negative Negative LAB CHEMISTRY METHOD 06/08/2025 8:24 AM [facility] Comment:Specimens from patie nts taking pantoprazole sodium (Protonix) have been shown to produce false positive results. Oxycodone Screen, Ur Negative Negative LAB CHEMISTRY METHOD 06/08/2025 8:24 AM EDT [facility] Fentanyl, Ur Negative Negative LAB CHEMISTRY METHOD 06/08/2025 8:24 AM EDT [facility] Urine Urine specimen obtained by clean catch procedure / Unknown Non-blood Collection / Unknown 06/08/2025 7:54 AM EDT 06/08/2025 8:[address] [facility] - 06/08/2025 8:24 AM EDT [...] URINE ORDERABLES Final Result Performing Organization Address City/[facility]/ZIP Co de Phone Number [facility] [address] [place] [address], [place] [phone] * Buprenorphine screen, urine (06/08/2025 7:54 AM EDT) [facility] Buprenorphine Screen Urine Negative Negative LAB CHEMISTRY METHOD 06/08/2025 8:24 AM EDT [facility] Urine Urine specimen obtained by clean catch procedure / Unknown Non-blood Collection / Unknown 06/08/2025 7:54 AM EDT 06/08/2025 8:[address] [facility] - 06/08/2025 8:24 AM EDT Assay cutoff 5 ng/mL Semi-quantitative assay for screening purposes only. Unconfirmed screening result should not be used for non-medical purposes. *ALTERNATE METHOD CONFIRMATION DONE UPON REQUEST ONLY* Tan Weems MD LAB URINE ORDERABLES Final Result [facility] [address] [place] [address], [place] [phone] * (ABNORMAL) Methadone, urine (06/08/2025 7:54 AM EDT) Methadone Screen, Urine Positive (A) Negative LAB CHEMISTRY METHOD 06/08/2025 8:24 AM EDT [facility] Comment: Assay cutoff 300 ng/mL Semi-quantitative assay for screening purposes only. Unconfirmed screening result should not be used for non-medical purposes. *ALTERNATE METHOD CONFIRMATION DONE UPON REQUEST ONLY* Urine Urine specimen obtained by clean catch procedure / Unknown Non-blood Collection / Unknown 06/08/2025 7:54 AM EDT 06/08/2025 8:04 AM EDT Tan Weems MD LAB URINE ORDERABLES Final Result Performing Organization Address [facility]/ZIP Co de Phone Number [facility] [address] [place] [address], [place] [phone] * Phencyclidine, urine (06/08/2025 7:54 AM EDT) PCP Scrn, Ur Negative Negative LAB CHEMISTRY METHOD 06/08/2025 8:24 AM EDT [facility] Comment: Assay cutoff 25 ng/mL Semi-quantitative assay for screening purposes only. Unconfirmed screening result should not be used for non-medical purposes. *ALTERNATE METHOD CONFIRMATION DONE UPON REQUEST ONLY* Urine Urine specimen obtained by clean catch procedure / Unknown Non-blood Collection / Unknown 06/08/2025 7:54 AM EDT 06/08/2025 8:04 AM EDT us Tan Weems MD LAB URINE ORDERABLES Final Result [facility] [address] [place] [address], [place] [phone] * Troponin I high sensitivity (06/08/2025 7:51 AM EDT) Only the most recent of2 resultswithin the time period is included. High Sensitivity Troponin I 13 <=79 ng/L LAB CHEMISTRY METHOD 06/08/2025 8:30 AM EDT [facility] Blood Venous blood specimen / Unknown Venipuncture / Unknown 06/08/2025 7:51 AM EDT 06/08/2025 8:03 AM EDT Narrative [facility] - 06/08/2025 8:30 AM EDT High levels of biotin in samples may falsely decrease hsTroponin values. Use caution when interpreting hsTroponin results in patients taking biotin who exhibit renal impairment (eGFR <60) or in patients taking more than 20 mg/day of biotin. us Tan Weems MD LAB BLOOD ORDERABLES Final Result [facility] [address] [place] [address], * XR Chest 2 Views (06/08/2025 6:57 AM EDT) Anatomical Region Laterality Modality Body Radiographic Zara ging 06/08/2025 8:19 AM EDT Impressions 06/08/2025 8:20 AM EDT FINDINGS/IMPRESSION: Lungs are clear. No pleural effusion or pneumothorax. Cardiac silhouette and bones are within normal limits. -------- FINAL REPORT -------- Dictated By: CAHPARRITA AYON Dictated Date: 06/08/2025 08:19 ET Assigned Physician: CHAPARRITA AYON Reviewed and Electronically Signed By: CHAPARRITA AYON Signed Date: 06/08/2025 08:20 ET Workstation ID: [id number] Transcribed By: Self Edit Transcribed Date: 06/08/2025 08:19 ET Narrative 06/08/2025 8:20 AM EDT XR CHEST 2 VIEWS INDICATION: Chest pain TECHNIQUE: XR CHEST 2 VIEWS COMPARISON: 12/28/2016 Procedure Note Chaparrita Ayon MD - 06/08/2025 XR CHEST 2 VIEWS INDICATION: Chest pain TECHNIQUE: XR CHEST 2 VIEWS COMPARISON: 12/28/2016 IMPRESSION: FINDINGS/IMPRESSION: Lungs are clear. No pleural effusion orpneumothorax. Cardiac silhouette and bones are within normal limits. -------- FINAL REPORT -------- Dictated By: CHAPARRITA AYON Dictated Date: 06/08/2025 08:19 ET Assigned Physician: CHAPARRITA AYON Reviewed and Electronically Signed By: CHAPARRITA AYON Signed Date: 06/08/2025 08:20 ET Workstation ID: [id number] Transcribed By: Self Edit Transcribed Date: 06/08/2025 08:19 ET us Tan Weems MD IMG XR PROCEDURES Final Res ult * (ABNORMAL) CBC auto differential (06/08/2025 6:22 AM EDT) WBC 10.3 4.8 - 10.8 K/mcL LAB HEMETOLOGY METHOD 06/08/2025 6:40 AM EDT [facility] RBC 4.90 4.50 - 5.50 M/mcL LAB HEMETOLOGY METHOD 06/08/2025 6:40 AM EDT [facility] Hemoglobin 14.6 13.5 - 17.5 g/dL LAB HEMETOLOGY METHOD 06/08/2025 6:40 AM EDT [facility] Hematocrit 44.8 42.0 - 54.0 % LAB HEMETOLOGY METHOD 06/08/2025 6:40 AM EDT [facility] MCV 92.2 79.0 - 98.0 FL LAB HEMETOLOGY METHOD [facility]/08[facility]2025 [facility] MCH 30.0 27.0 - 32.0 pcg LAB HEMETOLOGY METHOD 06/08[facility]2025 6:[facility] MCHC 32.6 32.0 - 37.0 g/dL LAB HEMETOLOGY METHOD 06/08/2025 6:40 AM T [facility] RDW 15.0 11.0 - 15.0 % LAB HEMETOLOGY METHOD 06/08/2025 6:40 AM [facility] Platelets 343 130 - 400 K/mcL LAB HEMETOLOGY METHOD 06/08/2025 6:40 AM [facility] MPV 10.2 7.0 - 11.0 FL LAB HEMETOLOGY METHOD 06/08/2025 6:40 AM [facility] NRBC 0.0 <1.0 % LAB HEMETOLOGY METHOD 06/08/2025 6:40 AM [facility] NRBC Absolute 0.00 <0.10 K/mcL LAB HEMETOLOGY METHOD 06/08/2025 6:40 AM [facility] Neutrophils Relative 49.0 % LAB HEMETOLOGY METHOD 06/08/2025 6:40 AM [facility] Lymphocytes Relative 37.9 % LAB HEMETOLOGY METHOD 06/08/2025 6:40 AM [facility] Monocytes Relative 11.4 % LAB HEMETOLOGY METHOD 06/08/2025 6:40 AM [facility] Eosinophils Relative 0.9 % LAB HEMETOLOGY METHOD 06/08/2025 6:40 AM [facility] Basophils Relative 0.5 % LAB HEMETOLOGY METHOD 06/08/2025 6:40 AM [facility] Immature Granulocytes Relative 0.3 % LAB HEMETOLOGY METHOD 06/08/2025 6:40 AM [facility] Neutrophils Absolute 5.04 1.50 - 7.00 K/mcL LAB HEMETOLOGY METHOD 06/08/2025 6:40 AM [facility] Lymphocytes Absolute 3.90 1.00 - 5.00 K/mcL LAB HEMETOLOGY METHOD 06/08/2025 6:40 AM EDT [facility] Monocytes Absolute 1.17(H) 0.20 - 1.00 K/[facility] LAB HEMETOLOGY METHOD 06/08/2025 6:40 AM EDT [facility] Eosinophils Absolute 0.09 0.00 - 0.50 K/[facility] LAB HEMETOLOGY METHOD 06/08/2025 6:40 AM EDT [facility] Basophils Absolute 0.05 0.00 - 0.20 K/[facility] LAB HEMETOLOGY METHOD 06/08/2025 6:40 AM EDT [facility]) [facility] Immature Granulocytes Absolute 0.03 0.00 - 0.03 K/[facility] LAB HEMETOLOGY METHOD 06/08/2025 6:40 AM EDT [facility] Blood Venous blood specimen / Unknown Venipuncture / Unknown 06/08/2025 6:22 AM EDT 06/08/2025 6:30 AM EDT Tan Weems MD LAB BLOOD ORDERABLES Final Result Performing Organization Address City/[facility]/ZIP Co de Phone Number [facility] [address] [place] [address], [place] [phone] * B-type natriuretic peptide (06/08/2025 6:22 AM EDT) BNP 23 <=100 pcg/mL LAB CHEMISTRY METHOD 06/08/2025 7:07 AM EDT [facility] Blood Venous blood specimen / Unknown Venipuncture / Unknown 06/08/2025 6:22 AM EDT 06/08/2025 6:30 AM EDT Tan Weems MD LAB BLOOD ORDERABLES Final Result [facility] [address] [place] [address], [place] [phone] * Magnesium (06/08/2025 6:22 AM EDT) Magnesium 2.1 1.9 - 2.6 mg/dL LAB CHEMISTRY METHOD 06/08/2025 7:06 AM EDT [facility] Blood Venous blood specimen / Unknown Venipuncture / Unknown 06/08/2025 6:22 AM EDT 06/08/2025 6:30 AM EDT Tan Weems MD LAB BLOOD ORDERABLES Final Result [facility] [address] [place] [address], [place] [phone] * Lipase (06/08/2025 6:22 AM EDT) Pathologist [facility] Lipase 66 13 - 75 unit/L LAB CHEMISTRY METHOD 06/08/2025 7:06 AM EDT [facility] Blood Venous blood specimen / Unknown Venipuncture / Unknown 06/08/2025 6:22 AM EDT 06/08/2025 6:30 AM EDT Tan Weems MD LAB BLOOD ORDERABLES Final Result Performing Organization Address City/[facility]/ZIP Co de Phone Number [facility] [address] [place] [address], [place] [phone] * (ABNORMAL) Ethanol (06/08/2025 6:22 AM EDT) Ethanol Level 25(H) 0 - 10 mg/dL LAB CHEMISTRY METHOD 06/08/2025 7:06 AM EDT [facility] Blood Venous blood specimen / Unknown Venipuncture / Unknown 06/08/2025 6:22 AM EDT 06/08/2025 6:30 AM EDT Tan Weems MD LAB BLOOD ORDERABLES Final Result [facility] [address] [place] [address], * (ABNORMAL) Basic metabolic panel (06/08/2025 6:22 AM EDT) Sodium 138 133 - 145 mmol/L LAB CHEMISTRY METHOD 06/08/2025 7:06 AM [facility] Potassium 3.5 3.5 - 5.5 mmol/L LAB CHEMISTRY METHOD 06/08/2025 7:06 AM [facility] Chloride 100 96 - 110 mmol/L LAB CHEMISTRY METHOD 06/08/2025 7:06 AM [facility] CO2 28 21 - 32 mmol/L LAB CHEMISTRY METHOD 06/08/2025 7:06 AM [facility] Anion Gap 10 3 - 11 LAB CHEMISTRY METHOD 06/08/2025 7:06 AM [facility] Glucose 125(H) 70 - 100 mg/dL LAB CHEMISTRY METHOD 06/08/2025 7:06 AM [facility] BUN 13 5 - 25 mg/dL LAB CHEMISTRY METHOD 06/08/2025 7:06 AM [facility] Creatinine 0.78 0.70 - 1.30 mg/dL LAB CHEMISTRY METHOD 06/08/2025 7:06 AM [facility] eGFR 103 >=60 mL/min/1. 73m2 LAB CHEMISTRY METHOD 06/08/2025 7:06 AM [facility] Comment:Calculation based on the Chronic Kidney Disease Epidemiology Collaboration (CKD-EPI) equation refit without adjustment for race. BUN/Creatinine Ratio 16.7 LAB CHEMISTRY METHOD 06/08/2025 7:06 AM [facility] Calcium 9.3 8.5 - 10.5 mg/dL LAB CHEMISTRY METHOD 06/08/2025 7:06 AM [facility] Blood Venous blood specimen / Unknown Venipuncture / Unknown 06/08/2025 6:22 AM EDT 06/08/2025 6:30 AM EDT Tan Weems MD LAB BLOOD ORDERABLES Final Result Performing Organization Address City/[facility]/ZIP Co de Phone Number [facility] [address] [place] [address], [place] [phone] * ECG 12 lead (06/08/2025 6:14 AM EDT) Ventricular Rate ECG 87 BPM GEMUSE Atrial Rate 87 BPM GEMUSE P-R Interval 172 ms GEMUSE QRS Duration 94 ms GEMUSE Q-T Interval 388 ms GEMUSE QTc 466 ms GEMUSE P Wave [place] 47 degrees GEMUSE R [place] 8 degrees GEMUSE T [place] 12 degrees GEMUSE ECG Interpretation Sinus rhythm with Premature atrial complexes When compared with ECG of 15-AUG-2018 08:31, Premature atrial complexes are now Present Vent. rate has increased BY 29 BPM Confirmed by KIAN DOBBS ([id number]) on 06/08/2025 11:41:02 PM GEMUSE 06/08/2025 6:14 AM EDT 06/08/2025 11:41 PM EDT Tan Weems MD ECG ORDERABLES Final Resul t Performing Organization Address City/[facility]/ZIP Co de Phone Number GEMUSE from Last 3 Months Insurance [facility] MEDICARE MEDICAID - [place] Care Teams Career Portals Teacher Relationship Specialty Start Date End Date Physician, Pcp Unknown PCP - General 06/08/25
[2025-06-10 15:36] LABS: Reflex LDLD? No
[2025-06-11 08:11] LABS: HBS Num1 0.16 mIU/mL (0-7.99); HBc Num1 7.76 S/CO (0.00-0.79); HBsAGNum1 0.46 S/CO (0.00-0.99); Hepatitis B Surface Antigen Negative (Negative); ~HepC Num1 12.62 S/CO (0.00-0.79); ~Hepatitis B Surface Antibody NONREACTIVE (Nonreactive); ~Hepatitis C Antibody Reactive (Nonreactive)
[2025-06-11 10:55] LABS: HBc Num2 7.53 S/CO; HBc Num3 7.63 S/CO
[2025-06-12 07:28] LABS: Hepatitis B Core Antibody IgM NON-REACTIVE (NON-REACTIVE)
[2025-06-12 14:24] LABS: HCV Log PCR <1.18 NOT DETECTED Log IU/mL (NOT DETECTED); HepC Viral Load <15 NOT DETECTED IU/mL (NOT DETECTED)
[2025-06-13 04:39] LABS: TS Negative Control Passed; TS Panel A 0; TS Panel B 0; TS Positive Control Passed; TSpotTB Negative (Negative)
[2025-06-13 16:54] LABS: HIV RNA PCR Qn Copies 145 copies/mL (NOT DETECTED); HIV RNA PCR Qn Log Copies 2.16 (NOT DETECTED)
[2025-06-17 14:33] LABS: Absolute CD3 Count 1398 cells/uL (840-3060); Absolute CD8 Count 744 cells/uL (180-1170); Percent CD3 Cells 68 % (57-85); Percent CD8 Cells 36 % (12-42)
== END 2025-06-10 10:51 | disposition home or self-care (01) ==
LOC: HO.HHCL 10:50
PROVIDERS: PCP Nurse Practitioner Primary Care; Visit Provider Student in an Organized Health Care Education/Training Program
DX: Z11.1 Encounter for screening for respiratory tuberculosis (principal); Z13.6 Encounter for screening for cardiovascular disorders; Z13.1 Encounter for screening for diabetes mellitus; Z21 Asymptomatic human immunodeficiency virus [HIV] infection status
CPT/HCPCS: 36415; 80053; 80061; 82248; 83036; 85025; 86359; 86360; 86481; 86592; 86704; 86705; 86706; 86803; 87340; 87522; 87536

== ENCOUNTER 2025-06-27 16:13 | Outpatient (REF) | payer MEDICARE, MEDICAID, SELFPAY ==
--- NOTE | ~2025-06-27 | US_ITS ---
EXAMINATION: US TRIPLEX LOWER EXTREMITY, BILATERAL CLINICAL INFORMATION: Localized swelling/edema COMPARISON: None available. TECHNIQUE: Color-flow triplex imaging with spectral analysis and compression Doppler were performed on the bilateral lower extremities. FINDINGS: Respiratory variation, normal compression and augmented flow are noted throughout the bilateral lower extremities. The visualized common femoral vein, superficial femoral vein, profunda femoral vein, popliteal vein and midcalf peroneal and posterior tibial venous segments show no evidence of deep venous thrombosis bilaterally. There is no Tracy's cyst. US/US venous duplex LE BI IMPRESSION: No evidence of deep venous thrombosis involving the bilateral lower extremities. Electronically signed by: Herminia Villatoro MD 06/27/2025 05:05 PM EDT
--- NOTE | ~2025-06-27 | XR_ITS ---
EXAMINATION: XR FOOT, LEFT CLINICAL INFORMATION: foot injury a few weeks ago, persistent swelling COMPARISON: None available. TECHNIQUE: AP, lateral, and oblique views of the left foot. FINDINGS: There is a broken foreign body 12 mm in length plantar to the neck of the first proximal phalanx. No other abnormalities are seen. XR/XR foot LT min 3V IMPRESSION: Radiodense linear foreign body 12 mm in length plantar to the first proximal phalanx neck. Electronically signed by: Venkat Mcfarland MD 06/27/2025 05:22 PM EDT
--- NOTE | ~2025-06-27 | XR_ITS ---
EXAMINATION: XR ANKLE, left CLINICAL INFORMATION: twisted ankle, worsening swelling COMPARISON: None available. TECHNIQUE: AP, lateral, and mortise views lower extremity joint, ankle. FINDINGS: Ankle mortise is congruent. There is no widening of the syndesmosis. Talar dome is intact. There are no calcaneal enthesophyte(s). There is soft tissue swelling. XR/XR ankle LT min 3V IMPRESSION: Unremarkable ankle x-ray. Electronically signed by: Venkat Mcfarland MD 06/27/2025 05:19 PM EDT
--- OUTSIDE RECORDS SUMMARY | 2025-06-27 17:02 | XMS_ITS | Clinical Summary ---
Author Organization [facility] Address [address] [place] [address] Phone Care Team Providers Care Timekeeping Supervisor Name Role Phone Physician, Pcp Unknown Primary [...] Daily Amount: 150 mg. 8 each 5 Active thiamine 100 mg tablet Take 1 [...] EDT - 06/08/2025 2:52 PM EDT Emergency [facility] Emergency [address] [place] [address] Radha Ladd MD Alcoholic intoxication without complication ([facility] V24) (Primary Dx) Discharge Disposition: Home or [...] Health Maintenance Due Date Last Done Comments Colorectal Cancer Screening: Colonoscopy 1966 HIB Vaccines (1 of 1 - Risk 1-dose series) 10/13/1967 Meningococcal B Vaccine (1 of 4 - Increased Risk) 1976 MMR Vaccines (1 of 2 - Risk 2-dose series) 1984 Zoster Vaccines (1 of 2) 1985 Pneumococcal Vaccine: 50+ Years (4 of 4 - PCV20 or PCV21) 05/11/2023 05/11/2018, 03/24/2018, 04/10/2015, Additional history exists Depression Screening 09/26/2024 COVID-19 Vaccine (4 - season) 2025 09/23/2021, 12/31/2020, 12/03/2020 Influenza Vaccine (#1) 2025 , 06/14/2019, 09/09/2018, Additional history exists Cholesterol Screening (Lipid Panel) 06/08/2025 Hepatitis C Screening 06/08/2025 Medicare Annual Wellness Visit 06/08/2025 Social Influencers of Health Screening 06/08/2025 DTaP,Tdap,and Td Vaccines (3 - Td or Tdap) 05/06/2026 05/06/2016, 10/18/2012 Meningococcal ACWY Vaccine (4 - Risk 2-dose series) 11/07/2028 11/07/2023, 09/14/2018, 05/11/2018 RSV Immunization Adult Patients (1 - 1-dose 75+ series) 2041 Hepatitis B Vaccines Completed 10/18/2012, 02/15/2011, 12/16/2010, [...] 8a panel, urine (06/08/2025 7:54 AM EDT) [facility] Amphetamine Screen, Ur Negative Negative LAB CHEMISTRY METHOD 06/08/2025 8:24 AM EDT [facility] Comment:Certain OTC medicati ons containing ephedrine, phenylephrine, pseudoephedrine and phenylpropanolamine can cause false positive results. Barbiturate Screen, Ur Negative Negative LAB CHEMISTRY METHOD 06/08/2025 8:24 AM EDT [facility] Benzodiazepine Screen, Ur Negative Negative LAB CHEMISTRY METHOD 06/08/2025 8:24 AM EDT [facility] Cocaine Screen, Ur Negative Negative LAB CHEMISTRY METHOD 06/08/2025 8:24 AM [facility] Opiate Screen, Ur Negative Negative LAB CHEMISTRY METHOD 06/08/2025 8:24 AM [facility] Cannabinoid (THC) Screen, Ur Negative Negative LAB CHEMISTRY METHOD 06/08/2025 8:24 AM [facility] Comment:Specimens from patie nts taking pantoprazole sodium (Protonix) have been shown to produce false positive results. Oxycodone Screen, Ur Negative Negative LAB CHEMISTRY METHOD 06/08/2025 8:24 AM EDT [facility] Fentanyl, Ur Negative Negative LAB CHEMISTRY METHOD 06/08/2025 8:24 AM EDT [facility] Urine Urine specimen obtained [...] Weems MD LAB URINE ORDERABLES Final Result [facility] [address] [place] [address], [place] [phone] * Buprenorphine screen, urine (06/08/2025 7:54 AM EDT) [facility] Buprenorphine Screen Urine Negative Negative LAB CHEMISTRY METHOD 06/08/2025 8:24 AM EDT [facility] Urine Urine specimen obtained [...] Weems MD LAB URINE ORDERABLES Final Result [facility] [address] [place] [address], [place] [phone] * (ABNORMAL) Methadone, urine (06/08/2025 7:54 AM EDT) Methadone Screen, Urine Positive (A) Negative LAB CHEMISTRY METHOD 06/08/2025 8:24 AM EDT [facility] Comment: Assay cutoff 300 [...] URINE ORDERABLES Final Result Performing Organization Address [facility] Co de Phone Number [facility] [address] [place] [address], [place] [phone] * Phencyclidine, urine (06/08/2025 7:54 AM EDT) Pathologist [facility] PCP Scrn, Ur Negative Negative LAB CHEMISTRY METHOD 06/08/2025 8:24 AM EDT [facility] Comment: Assay cutoff 25 ng/mL Semi-quantitative assay for screening purposes only. Unconfirmed screening result should not be used for non-medical purposes. *ALTERNATE METHOD CONFIRMATION DONE UPON REQUEST ONLY* Urine Urine specimen obtained by clean catch procedure / Unknown Non-blood Collection / Unknown 06/08/2025 7:54 AM EDT 06/08/2025 8:04 AM EDT Tan Weems MD LAB URINE ORDERABLES Final Result [facility] [address] [place] [address], [place] [phone] * Troponin I high sensitivity (06/08/2025 7:51 AM EDT) Only the most recent of2 resultswithin the time period is included. High Sensitivity Troponin I 13 <=79 ng/L LAB CHEMISTRY METHOD 06/08/2025 8:30 AM EDT [facility] Blood Venous blood specimen / Unknown Venipuncture / Unknown 06/08/2025 7:51 AM EDT 06/08/2025 8:03 AM EDT Narrative [facility] - 06/08/2025 8:30 AM EDT High levels of biotin in samples may falsely decrease hsTroponin values. Use caution when interpreting hsTroponin results in patients taking biotin who exhibit renal impairment (eGFR <60) or in patients taking more than 20 mg/day of biotin. us Tan Weems MD LAB BLOOD ORDERABLES Final Result [facility] [address] [place] [address], [place] [phone] * XR Chest 2 Views (06/08/2025 6:57 [...] Signed Date: 06/08/2025 08:20 ET Workstation ID: [id number] Transcribed By: Self Edit Transcribed Date: 06/08/2025 [...] Signed Date: 06/08/2025 08:20 ET Workstation ID: [id number] Transcribed By: Self Edit Transcribed Date: 06/08/2025 08:19 ET Tan Weems MD IMG XR PROCEDURES Final Res ult * (ABNORMAL) CBC auto differential (06/08/2025 6:22 AM EDT) WBC 10.3 4.8 - 10.8 K/mcL LAB HEMETOLOGY METHOD 06/08/2025 6:40 AM EDT [facility] RBC 4.90 4.50 - 5.50 M/mcL LAB HEMETOLOGY METHOD 06/08/2025 6:40 AM EDT [facility] Hemoglobin 14.6 13.5 - 17.5 g/dL LAB HEMETOLOGY METHOD 06/08/2025 6:40 AM [facility] Hematocrit 44.8 42.0 - 54.0 % LAB HEMETOLOGY METHOD 06/08/2025 6:40 AM EDT [facility] MCV 92.2 79.0 - 98.0 FL LAB HEMETOLOGY METHOD 06/08/2025 6:40 AM [facility] MCH 30.0 27.0 - 32.0 pcg LAB HEMETOLOGY METHOD 06/08/2025 6:40 AM [facility] MCHC 32.6 32.0 - 37.0 g/dL LAB HEMETOLOGY METHOD 06/08/2025 6:40 AM [facility] RDW 15.0 11.0 - 15.0 % LAB HEMETOLOGY METHOD 06/08/2025 6:40 AM [facility] Platelets 343 130 - 400 K/mcL LAB HEMETOLOGY METHOD 06/08/2025 6:40 AM [facility] MPV 10.2 7.0 - 11.0 FL LAB HEMETOLOGY METHOD 06/08/2025 6:40 AM [facility] NRBC 0.0 <1.0 % LAB HEMETOLOGY METHOD 06/08/2025 6:40 AM [facility] NRBC Absolute 0.00 <0.10 K/mcL LAB HEMETOLOGY METHOD 06/08/2025 6:40 AM [facility] Neutrophils Relative 49.0 % LAB HEMETOLOGY METHOD 06/08/2025 6:40 AM [facility] Lymphocytes Relative 37.9 % LAB HEMETOLOGY METHOD 06/08/2025 6:40 AM [facility] Monocytes Relative 11.4 % LAB HEMETOLOGY METHOD 06/08/2025 6:40 AM [facility] Eosinophils Relative 0.9 % LAB HEMETOLOGY METHOD 06/08/2025 6:40 AM [facility] Basophils Relative 0.5 % LAB HEMETOLOGY METHOD 06/08/2025 6:40 AM [facility] Immature Granulocytes Relative 0.3 % LAB HEMETOLOGY METHOD 06/08/2025 6:40 AM [facility] Neutrophils Absolute 5.04 1.50 - 7.00 K/mcL LAB HEMETOLOGY METHOD 06/08/2025 6:40 AM [facility] Lymphocytes Absolute 3.90 1.00 - 5.00 K/mcL LAB HEMETOLOGY METHOD 06/08/2025 6:40 AM EDT [facility] Monocytes Absolute 1.17(H) 0.20 - 1.00 K/[facility] LAB HEMETOLOGY METHOD 06/08/2025 6:40 AM EDT [facility] Eosinophils Absolute 0.09 0.00 - 0.50 K/[facility] HEMETOLOGY METHOD 06/08/2025 6:40 AM EDT [facility] Basophils Absolute 0.05 0.00 - 0.20 K/[facility] HEMETOLOGY METHOD 06/08/2025 6:40 AM EDT [facility] Immature Granulocytes Absolute 0.03 0.00 - 0.03 K/[facility] HEMETOLOGY METHOD 06/08/2025 6:40 AM EDT [facility] Blood Venous blood specimen / Unknown Venipuncture / Unknown 06/08/2025 6:22 AM EDT 06/08/2025 6:30 AM EDT Tan Weems MD LAB BLOOD ORDERABLES Final Result [facility] [address] [place] [address], [place] [phone] * B-type natriuretic peptide (06/08/2025 6:22 AM EDT) BNP 23 <=100 pcg/mL LAB CHEMISTRY METHOD 06/08/2025 7:07 AM EDT [facility] Blood Venous blood specimen / Unknown Venipuncture / Unknown 06/08/2025 6:22 AM EDT 06/08/2025 6:30 AM EDT Tan Weems MD LAB BLOOD ORDERABLES Final Result [facility] [address] [place] [address], * Magnesium (06/08/2025 6:22 AM EDT) Magnesium 2.1 1.9 - 2.6 mg/dL LAB CHEMISTRY METHOD 06/08/2025 7:06 AM EDT [facility] Blood Venous blood specimen / Unknown Venipuncture / Unknown 06/08/2025 6:22 AM EDT 06/08/2025 6:30 AM EDT Tan Weems MD LAB BLOOD ORDERABLES Final Result [facility] [address] [place] [address], [place] [phone] * Lipase (06/08/2025 6:22 AM EDT) Lipase 66 13 - 75 unit/L LAB CHEMISTRY METHOD 06/08/2025 7:06 AM EDT [facility] Blood Venous blood specimen / Unknown Venipuncture / Unknown 06/08/2025 6:22 AM EDT 06/08/2025 6:30 AM EDT Tan Weems MD LAB BLOOD ORDERABLES Final Result [facility] [address] [place] [address], [place] [phone] * (ABNORMAL) Ethanol (06/08/2025 6:22 AM EDT) Ethanol Level 25(H) 0 - 10 mg/dL LAB CHEMISTRY METHOD 06/08/2025 7:06 AM EDT [facility] Blood Venous blood specimen / Unknown Venipuncture / Unknown 06/08/2025 6:22 AM EDT 06/08/2025 6:30 AM EDT us Tan Weems MD LAB BLOOD ORDERABLES Final Result [facility] [address] [place] [address], * (ABNORMAL) Basic metabolic panel (06/08/2025 6:22 AM EDT) Sodium 138 133 - 145 mmol/L LAB CHEMISTRY METHOD 06/08/2025 7:06 AM [facility] Potassium 3.5 3.5 - 5.5 mmol/L LAB CHEMISTRY METHOD 06/08/2025 7:06 AM [facility] Chloride 100 96 - 110 mmol/L LAB CHEMISTRY METHOD 06/08/2025 7:06 AM [facility] CO2 28 21 - 32 mmol/L LAB CHEMISTRY METHOD 06/08/2025 7:06 AM [facility] Anion Gap 10 3 - 11 LAB CHEMISTRY METHOD 06/08/2025 7:06 AM [facility] Glucose 125(H) 70 - 100 mg/dL LAB CHEMISTRY METHOD 06/08/2025 7:06 AM [facility] BUN 13 5 - 25 mg/dL LAB CHEMISTRY METHOD 06/08/2025 7:06 AM [facility] Creatinine 0.78 0.70 - 1.30 mg/dL LAB CHEMISTRY METHOD 06/08/2025 7:06 AM [facility] eGFR 103 >=60 mL/min/1. 73m2 LAB CHEMISTRY METHOD 06/08/2025 7:06 AM [facility] Comment:Calculation based on the Chronic Kidney Disease Epidemiology Collaboration (CKD-EPI) equation refit without adjustment for race. BUN/Creatinine Ratio 16.7 LAB CHEMISTRY METHOD 06/08/2025 7:06 AM [facility] Calcium 9.3 8.5 - 10.5 mg/dL LAB CHEMISTRY METHOD 06/08/2025 7:06 AM EDT [facility] Blood Venous blood specimen / Unknown Venipuncture / Unknown 06/08/2025 6:22 AM EDT 06/08/2025 6:30 AM EDT Tan Weems MD LAB BLOOD ORDERABLES Final Result Performing Organization Address City/[facility]/ZIP Co de Phone Number [facility] [address] [place] [address], [place] [phone] * ECG 12 lead (06/08/2025 6:14 AM EDT) Ventricular Rate ECG 87 BPM GEMUSE Atrial Rate 87 BPM GEMUSE P-R Interval 172 ms GEMUSE QRS Duration 94 ms GEMUSE Q-T Interval 388 ms GEMUSE QTc 466 ms GEMUSE P Wave Sumner 47 degrees GEMUSE R Sumner 8 degrees GEMUSE T Sumner 12 degrees GEMUSE ECG Interpretation Sinus rhythm with Premature atrial complexes When compared with ECG of 15-AUG-2018 08:31, Premature atrial complexes are now Present Vent. rate has increased BY 29 BPM Confirmed by KIAN DOBBS ([id number]) on 06/08/2025 11:41:02 PM GEMUSE 06/08/2025 6:14 AM EDT 06/08/2025 11:41 PM EDT Tan Weems MD ECG ORDERABLES Final Resul t GEMUSE from Last 3 Months Insurance [employer] MEDICARE MEDICAID - [place] Care Teams Timekeeping Supervisor Relationship Specialty Start Date End Date Physician, Pcp Unknown PCP - General 06/08/25
== END 2025-06-27 16:14 | disposition home or self-care (01) ==
LOC: HO.US 16:13
PROVIDERS: PCP Nurse Practitioner Primary Care; Visit Provider Family Medicine
DX: R60.0 Localized edema (principal); M79.89 Other specified soft tissue disorders; M79.672 Pain in left foot; M25.571 Pain in right ankle and joints of right foot
CPT/HCPCS: 73610; 73630; 93970

== ENCOUNTER → 2025-06-27 16:15 | Outpatient (BNV) | payer MEDICARE, MEDICAID, SELFPAY | PROVIDERS: PCP Nurse Practitioner Primary Care; Visit Provider Radiology Diagnostic Radiology | DX: R60.0 Localized edema (principal); M25.472 Effusion, left ankle; S90.852A Superficial foreign body, left foot, initial encounter; X50.9XXA Other and unspecified overexertion or strenuous movements or postures, initial encounter | CPT/HCPCS: 73610; 73630; 93970 ==

== ENCOUNTER 2025-08-30 10:10 | Outpatient (AMB) | payer MEDICARE, MEDICAID, SELFPAY ==
--- NOTE | 2025-08-30 08:30 | A.OFFVIS_ITS ---
Intake Visit Reasons: LDCT Allergies No Known Allergies Allergy (Unverified 06/12/20 16:24) HPI HPI LDCT: Details: Initial visit for this 60yo smoker with a 33PYH. Patient started smoking at age 16 for 44 years at 3/4ppd. . Denies marijuana use. Denies second hand smoke exposure. Denies exposure to chemicals or substances like asbestos. . Denies known family history of lung cancer. Denies personal history of cancers. Denies chest CT in last year. . Denies recent travel outside the [place]. Denies recent respiratory illness or recent hospitalization for respiratory issues. Denies testing positive for COVID. Admits receiving COVID Vaccine. . HIV positive. Hep C. History PE in 2020 on Eliquis. Denies fever, chills, new/worsening cough, hemoptysis, hoarseness or dysphagia. Denies significant chest pain, significant dyspnea or unintentional weight loss. Patient Lung Cancer Screening Questionnaire reviewed with patient by provider. . Shared Decision Making Completed. Patient meets criteria. Discussed in detail with patient, the risk vs benefit of LDCT screening. Patient consents to proceed with scan. Discussed smoking cessation. [facility] Medical History (Updated 08/30/25 @ 10:29 by Marie Juares PA-C) History of pulmonary embolism Nicotine dependence, cigarettes, uncomplicated Hepatitis B core antibody positive History of hepatitis C Hepatitis A immune Phthisical cornea Severe recurrent major depressive disorder with psychotic symptoms Chronic obstructive pulmonary disease Chronic hepatitis C virus infection with stage 2 hepatic fibrosis Noncompliance with antiretroviral medication regimen Opioid dependence Chronic gastroesophageal reflux disease HIV disease Cocaine abuse Mood disorder Surgical History (Updated 08/30/25 @ 10:29 by Marie Juares PA-C) History of splenectomy Social History (Updated 08/30/25 @ 10:30 by Marie Juares PA-C) Household Members: Spouse and Children Alcohol intake: current Alcohol intake frequency: a few times a week Patient Tobacco Use Status: Current everyday Tobacco user Tobacco use type: Cigarette Years Smoked: (onset 16yo, 3/4ppd x 44yrs, 33pyh) Assessment & Plan Assessment & Plan (1) Nicotine dependence, cigarettes, uncomplicated: Comment: (onset 16yo, 3/4ppd x 44yrs, 33pyh) Code(s): F17.210 - Nicotine dependence, cigarettes, uncomplicated Category: Medical Plan: - SDM visit completed today in office. - Patient meets criteria for LDCT for lung cancer screening purposes and is a symptomatic. - Smoking cessation counseling offered. Patients can always call [phone]. - Will arrange for a LDCT scan of the chest for screening purposes at [facility]. - Risks, benefits, and alternatives were discussed in detail and the patient agrees to proceed. - Risks discussed include but are not limited to: radiation exposure, anxiety during testing and while awaiting results, false negatives, false positives and possibility of additional intervention such as further imaging or surgical procedures for benign disease. - Benefits are obviously detection of lung cancer at an early stage which can lead to improved outcomes. - Discussed the importance of screening program compliance with adherence to yearly LDCT scan as scheduled - or sooner interval scans for personalized screening regimen. - Discussed follow up plan. Our office will send a letter discussing results and if needed set up phone call and office visit based on CT findings. - Patient educated on results categorization and the management decisions for suspicious findings potentially found on the screening LDCT scan. Any patient with a Lung RADS score of 3 or 4 will be reviewed by a multidisciplinary team at [facility] to form a plan of action in regards to scan findings. - If further work up is warranted for a suspicious lung finding this will be followed by the Lung Cancer Screening program in conjunction with the Thoracic Surgery Department at [facility]. - A copy of the office note and LDCT will be sent to the patient's PCP - as well as documentation on any associated further plans of care. - Incidental findings on LDCT are the PCP's responsibility. These findings are indicated with an S finding on the LDCT Assessment. A note discussing the findings will be sent to the PCP who is then responsible for further management. - All questions answered.? Coding Level of Care Code Lung Cancer Screening G0296 Diagnoses Nicotine dependence, cigarettes, uncomplicated F17.210
== END 2025-08-30 11:27 | disposition home or self-care (01) ==
LOC: HO.HPS 10:11
PROVIDERS: PCP Nurse Practitioner Primary Care; Referring Provider Nurse Practitioner Primary Care; Visit Provider Physician Assistant Medical
DX: F17.210 Nicotine dependence, cigarettes, uncomplicated (principal)
CPT/HCPCS: G0296

== ENCOUNTER 2025-08-30 10:30 | Outpatient (REF) | payer MEDICARE, MEDICAID, SELFPAY ==
--- NOTE | ~2025-08-30 | CT_ITS ---
EXAMINATION: CT LUNG SCREENING HISTORY: F17.210 - Nicotine dependence, cigarettes, uncomplicated TECHNIQUE: Low dose axial images were obtained from the sternal notch to upper abdomen without IV contrast per standard departmental protocol. Sagittal and coronal reformatted images were also obtained and reviewed. One or more of the following techniques was used for dose reduction: Automated exposure control, adjustment of the mA and/or kV according to patient size, use of iterative reconstruction technique. DLP: 60 mGy-cm COMPARISON: There are no prior studies available for comparison. FINDINGS: Lung nodules: No pulmonary nodules are identified. Emphysema: mild Coronary Calcification: none Aortic Arch Calcification: mild Potentially Significant Incidentals : none Additional Chest Findings: There is no pleural or pericardial effusion. No mediastinal or axillary lymphadenopathy is identified. Visualized upper abdomen: The visualized portion of the liver demonstrates diffusely decreased attenuation, consistent with steatosis. The visualized portions of the spleen and adrenals have an unremarkable unenhanced appearance. CT/CT lung screening IMPRESSION: No suspicious pulmonary nodules are identified. LUNG-RADS ASSESSMENT: Lung-RADS 1: Negative MANAGEMENT: Continue annual screening with LDCT in 12 months Category S: N/A Electronically signed by: Rj Covington MD 08/30/2025 11:16 AM [facility]
== END 2025-08-30 10:31 | disposition home or self-care (01) ==
LOC: HO.CT 10:30
PROVIDERS: PCP Nurse Practitioner Primary Care; Visit Provider Physician Assistant Medical
DX: F17.210 Nicotine dependence, cigarettes, uncomplicated (principal); Z12.2 Encounter for screening for malignant neoplasm of respiratory organs
CPT/HCPCS: 71271; G0296

== ENCOUNTER → 2025-08-30 10:31 | Outpatient (BNV) | payer MEDICARE, MEDICAID, SELFPAY | PROVIDERS: PCP Nurse Practitioner Primary Care; Visit Provider Radiology Diagnostic Radiology | DX: F17.210 Nicotine dependence, cigarettes, uncomplicated (principal) | CPT/HCPCS: 71271 ==